=== PATIENT | female | born 1985 | race Caucasian/White ===

== ENCOUNTER 2020-05-05 15:07 | Emergency (ER) | payer OTHER, SELFPAY ==
[2020-05-05 15:13] VITALS: BP 151/94; PULSE 92; RESP 16; TEMP 36.6; O2SAT 100
--- NOTE | 2020-05-05 15:30 | DI.US_ITS ---
EXAM: US UPPER EXTREMITY VENOUS LT CLINICAL HISTORY: BILAT PAIN AND SWELLING. TECHNIQUE: Ultrasound examination of the left upper extremity venous system(s) is performed using gr ayscale, color-flow, and spectral Doppler analysis. COMPARISON: No exams were available for comparison FINDINGS: The left internal jugular, axillary, subclavian, cephalic, basilic and brachial veins are patent with out evidence of thrombosis. Soft tissues are unremarkable. IMPRESSION: No DVT. DATA REPOSITORY:
--- NOTE | 2020-05-05 15:30 | DI.US_ITS ---
EXAM: US UPPER EXTREMITY VENOUS RT CLINICAL HISTORY: BILATERAL PAIN AND SWELLING. TECHNIQUE: Ultrasound examination of the right upper extremity venous system(s) is performed using g rayscale, color-flow, and spectral Doppler analysis. COMPARISON: No exams were available for comparison FINDINGS: The right internal jugular, axillary, subclavian, cephalic, basilic and brachial veins are patent wit hout evidence of thrombosis. Soft tissues are unremarkable. IMPRESSION: No DVT. DATA REPOSITORY:
--- NOTE | 2020-05-05 15:40 | ED.GENADUL_ITS ---
Discharge Plan Disposition Patient Disposition: HOME Condition: Stable Discharge Details Clinical Impression: Myalgia [facility]: Selwyn Carver Home Meds and New Rx's Prescriptions: New ketorolac 10 mg tablet 10 mg PO TID PRN (Reason: pain) 5 Days Qty: 15 RF: 0 Continued Vyvanse 60 mg Capsule 60 mg PO DAILY RF: 0 duloxetine 60 mg Capsule, Delayed Rel Sprinkle 60 mg PO DAILY RF: 0 Discharge Instructions Instructions: Musculoskeletal Pain (ED) Additional Instructions: Home to rest today. Your work-up included a laboratory panel of D-dimer, CBC, comprehensive, CK, CRP. [place] amounts of fluids to maintain hydration. May use the provided ketorolac 3 times daily as needed for pain. Do not use with additional Motrin, ibuprofen, Advil. May use Tylenol 650 mg every 6 hours as needed. Return if you have a rash, difficulty breathing, progressive swelling, or any other acute concerns. 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 She then developed bilateral upper extremity swelling and discomfort on Tuesday morning that has been constant and without modifying factors. No chest pain or shortness of breath, no change to urine. Her sister is a history of lupus anticoagulant disorder. The patient's does not have known history of clotting disorder. She is slightly hypertensive and mildly anxious on exam. Must exclude rhabdomyolysis, underlying DVT. Patient IV access established, labs obtained, referred for bilateral upper extremity ultrasound. Ultrasound of the right and left upper extremity does not reveal evidence of DVT. Labs are reassuring but would not be discretely elevated CK of 200. Discussed with patient she may have myalgias. Discussed with her indications to seek return evaluation. Will place her on Toradol for its anti-inflammatory effects and will have her hydrate. She is stable for discharge to home and follow-up with her primary care physician. Lab Data Lab results reviewed: Yes I reviewed the patient's lab results. Labs: Laboratory Results - last 24 hr 05/05/20 05/05/20 05/05/20 16:00 16:00 17:06 WBC 8.38 RBC 4.98 Hgb 15.2 Hct 43.7 MCV 87.8 MCH 30.5 MCHC 34.8 RDW 11.3 L Plt Count 341 MPV 9.7 Immature Gran % 0.2 Neutrophils % 53.6 Lymphocytes % 38.3 Monocytes % 5.4 Eosinophils % 1.9 Basophils % 0.6 Nucleated RBC % 0 Absolute Neutrophils 4.49 Absolute Lymphocytes 3.21 Absolute Monocytes 0.45 Absolute Eosinophils 0.16 Absolute Basophils 0.05 PT 10.4 INR 1.0 APTT 23.6 D-Dimer 291 Sodium Potassium Chloride Carbon Dioxide Anion Gap BUN Creatinine Estimated GFR/1.73 m2 Glucose Calcium Magnesium 2.1 Total Bilirubin AST ALT Alkaline Phosphatase Creatine Kinase 200 H C-Reactive Protein Total Protein Albumin 05/05/20 05/05/20 17:06 17:09 WBC RBC Hgb Hct MCV MCH MCHC RDW Plt Count MPV Immature Gran % Neutrophils % Lymphocytes % Monocytes % Eosinophils % Basophils % Nucleated RBC % Absolute Neutrophils Absolute Lymphocytes Absolute Monocytes Absolute Eosinophils Absolute Basophils PT INR APTT D-Dimer Sodium 143 Potassium 3.5 Chloride 106 Carbon Dioxide 27.4 Anion Gap 9.6 BUN 9 Creatinine 0.8 Estimated GFR/1.73 m2 >= 60.00 Glucose 96 Calcium 9.0 Magnesium Total Bilirubin 0.4 AST 26 ALT 29 Alkaline Phosphatase 76 Creatine Kinase C-Reactive Protein 0.11 Total Protein 8.0 Albumin 3.9 HPI General Mode of arrival: ambulatory . Date/Time Provider Initiated Documentation: 05/05/20 15:09 . Limitations to Documentation: no limitations . Information obtained by: patient . History of Present Illness 34 year old F presents to the emergency department with the chief complaint of Bilateral upper extremity, described as moderate, Quality is described as dull and constant, and is localized to the left, right and upper extremity. Patient started experiencing this day(s) and it has been constant. No relieving factors imp rove symptom(s), No exacerbating factors reported . Patient notes weakness; denies chest pain, shortness of breath and syncope. Patient did receive the following treatments prior to arrival, none and other (NSAID on the weekend) Related Data Home Medications Medication Instructions Recorded Confirmed Vyvanse 60 mg PO DAILY 05/05/20 05/05/20 duloxetine 60 mg PO DAILY 05/05/20 05/05/20 ketorolac 10 mg PO TID PRN 5 Days #15 tab 05/05/20 Previous Rx's Medication Instructions Recorded ketorolac 10 mg PO TID PRN 5 Days #15 tab 05/05/20 Allergies Allergy/AdvReac Type Severity Reaction Status Date / Time No Known Allergies Allergy Unverified 05/05/20 15:15 General Stated Complaint: Vascular KILO: 3 Review of Systems Narrative: No chest pain or shortness of breath. Sister has a history of blood clots. Worked to set up a power lifting competition prior to onset. Has otherwise been well. 8 systems reviewed and otherwise negative. [facility] Social History Smoking risk assessment performed?: No Exam Narrative Exam Narrative: GEN: awake, alert, oriented 3. Pleasant, well groomed, interactive. HEAD: Normocephalic, atraumatic ENT: Mucous membranes moist, oropharynx unremarkable, External ear exam unremarkable EYES: PERRL, EOMI NECK: Full ROM, no RATNA, no menigismus CHEST/RESP: Nontender, clear to auscultation bilateral, no wheeze/rhonchi/rales CARDIOVASCULAR: RRR, no murmur, rub amanda. 2+ Rad pulse bilateral ABDOMEN: Soft, nontender, no mass. +Bowel sounds EXT: Full ROM, patient able to demonstrate normal motor function of the radial, ulnar, median nerves of bilateral upper extremities. Her strength is 5 out of 5. 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 Her sensation is intact throughout. 2+ radial pulse bilaterally. Neuro: Grossly normal neurologic exam, conversant, interactive. Psych: Speech fluent, thoughts congruent, affect normal Course Vital Signs Vital signs: Vital Signs Temperature 36.6 C 05/05/20 15:13 Pulse 92 H 05/05/20 15:13 Respiratory Rate 16 05/05/20 15:13 Blood Pressure 151/94 H 05/05/20 15:13 Pulse Oximetry 100 05/05/20 15:13 Temperature 36.6 C 05/05/20 15:13 Temperature Source Temporal Artery Scan 05/05/20 15:13 Pulse 92 H 05/05/20 15:13 Respiratory Rate 16 05/05/20 15:13 Blood Pressure 151/94 H 05/05/20 15:13 Pulse Oximetry 100 05/05/20 15:13 Oxygen Delivery Method Room Air 05/05/20 15:13 Oxygen Flow Rate 0 05/05/20 15:13 Pain Level 8 05/05/20 15:13
[2020-05-05 16:13] VITALS: RESP 18
[2020-05-05 16:22] LABS: Abs Immature Grans 0.02 10^3/uL (0.0-0.06); Absolute Basophil Count 0.05 10^3/uL (0.0-0.2); Absolute Eosinophil Count 0.16 10^3/uL (0.0-0.7); Absolute Lymphocyte Count 3.21 10^3/uL (1.2-3.4); Absolute Monocyte Count 0.45 10^3/uL (0.1-0.8); Absolute Neutrophil Count 4.49 10^3/uL (1.2-6.7); Basophils % 0.6; Eosinophils % 1.9; HCT 43.7 % (36.0-46.0); HGB 15.2 g/dL (11.2-15.7); Immature Grans % 0.2; Lymphocytes % 38.3; MCH 30.5 pg (27.0-33.0); MCHC 34.8 % (32.0-36.0); MCV 87.8 fL (80-95); MPV 9.7 fL (8.0-11.0); Monocytes % 5.4; Neutrophils % 53.6; Nucleated RBC 0 %; Platelet Count 341 10^3/uL (130-400); RBC 4.98 10^6/uL (3.93-5.22); RDW 11.3 % (11.7-14.6); RDW-SD 36.3 fL; WBC 8.38 10^3/uL (4.4-10.8)
[2020-05-05 16:32] LABS: PTT Activated 23.6 sec (21.0-27.5); Prothrombin Time 10.4 sec (9.3-11.0)
[2020-05-05 16:56] LABS: D-Dimer 291 ng/mlFEU (<500)
--- NOTE | 2020-05-05 17:11 | DI.VRAD_ITS ---
PROCEDURE INFORMATION: Exam: US Duplex Right Upper Extremity Veins, Limited Exam date and time: 05/05/2020 4:32 PM Age: 34 years old Clinical indication: Pain; Other: Arm TECHNIQUE: Imaging protocol: Real-time Duplex ultrasound of the Right Upper Extremity with 2-D vazquez scale, color Doppler flow and spectral waveform analysis with image documentation. Limited exam focused on the right upper extremity veins. COMPARISON: No relevant prior studies available. FINDINGS: Right deep veins: Unremarkable. Axillary and brachial veins are patent throughout without thrombus. Normal Doppler waveforms. Normal compressibility and/or augmentation response. Visualized internal jugular and subclavian veins are patent. Right superficial veins: Unremarkable. Visualized cephalic and basilic veins are patent without thrombus. Soft tissues: Unremarkable. IMPRESSION: No evidence of deep vein thrombosis. Dictated and Authenticated by: Shilo Mora MD. Ordering:ARLEN Samano MD
--- NOTE | 2020-05-05 17:17 | DI.VRAD_ITS ---
PROCEDURE INFORMATION: Exam: US Duplex Upper Extremity Veins Exam date and time: 05/05/2020 3:35 PM Age: 34 years old Clinical indication: Pain; Other: Arm TECHNIQUE: Imaging protocol: Real-time Duplex ultrasound of the Upper Extremities with 2-D vazquez scale, color Doppler flow and spectral waveform analysis with image documentation. Complete exam focused on the bilateral upper extremity veins. COMPARISON: US UPPER EXTREMITY VENOUS RT 05/05/2020 4:08 PM FINDINGS: Right deep veins: Unremarkable. Axillary and brachial veins are patent throughout without thrombus. Normal Doppler waveforms. Normal compressibility and/or augmentation response. Visualized internal jugular and subclavian veins are patent. Right superficial veins: Unremarkable. Visualized cephalic and basilic veins are patent without thrombus. Left deep veins: Unremarkable. Axillary and brachial veins are patent throughout without thrombus. Normal Doppler waveforms. Normal compressibility and/or augmentation response. Visualized internal jugular and subclavian veins are patent. Left superficial veins: Unremarkable. Visualized cephalic and basilic veins are patent without thrombus. Soft tissues: Unremarkable. IMPRESSION: No evidence of deep vein thrombosis. Dictated and Authenticated by: Shilo Mora MD. Ordering:ARLEN Samano MD
[2020-05-05 17:27] LABS: Creatine Kinase 200 U/L (26-192); Magnesium 2.1 mg/dL (1.8-2.4)
[2020-05-05 17:46] LABS: ALT 29 U/L (14-59); AST 26 U/L (15-37); Albumin 3.9 g/dL (3.4-5.0); Alkaline Phosphatase 76 U/L (46-116); Anion Gap 9.6 mmol/L (3-11); BUN 9 mg/dL (7-18); Bilirubin, Total 0.4 mg/dL (0.2-1.0); CO2 27.4 mmol/L (21.0-32.0); CREATININE 0.8 mg/dL (0.55-1.02); Chloride 106 mmol/L (98-107); Glucose 96 mg/dL (74-106); Potassium 3.5 mmol/L (3.5-5.1); Sodium 143 mmol/L (136-145)
[2020-05-05 17:55] LABS: C-Reactive Protein 0.11 mg/dL (0.0-0.3)
[2020-05-05] MEDS: Ketorolac 10 MG TAB PO (18:20)
== END 2020-05-05 18:18 | disposition home or self-care (01) ==
PROVIDERS: Emergency Provider Emergency Medicine
DX: M79.18 Myalgia, other site (principal); R60.0 Localized edema
CPT/HCPCS: 36415; 80053; 82550; 99284; 83735; 85025; 85379; 85610; 85730; 86140; 93971

== ENCOUNTER 2021-02-22 02:07 | Emergency (ER) | payer OTHER, SELFPAY ==
[2021-02-22 02:47] VITALS: BP 140/79; PULSE 108; RESP 18; TEMP 36.9; O2SAT 98
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
== END 2021-02-22 04:48 | disposition home or self-care (01) ==
PROVIDERS: Emergency Provider Emergency Medicine
DX: F43.10 Post-traumatic stress disorder, unspecified (principal); R46.89 Other symptoms and signs involving appearance and behavior
CPT/HCPCS: 99285; 99283

== ENCOUNTER 2021-11-30 20:23 | Emergency (ER) | payer OTHER, SELFPAY ==
[2021-11-30 20:42] VITALS: BP 138/92; PULSE 108; RESP 24; TEMP 36.7; O2SAT 99
--- NOTE | 2021-11-30 20:45 | DI.CT_ITS ---
Exam(s) CT UPPER EXTREMITY RT WO EXAM: CT UPPER EXTREMITY RT WO CLINICAL HISTORY: Post carpal tunnel surgery, Injury, TECHNIQUE: Imaging Protocol: Axial computed tomography images with coronal and sagittal reformatted images were created and reviewed. CONTRAST MATERIAL: Intravenous: Omnipaque 350 Contrast volume:structured data in ml Contrast route:I V - Oral: yes / no COMPARISON: No exams were available for comparison FINDINGS: In the region of the elbow there are surgical clips seen along the ulnar aspect, probably related to surgery at this level, possibly related to the ulnar nerve. There is overlying skin thickening and s tranding in the subcutaneous fat at this level and extending distally along the dorso medial aspect o f the forearm. There is also truncation of the medial epicondyle of the distal humerus, probably pos tsurgical. More distally at the level of the wrist there is streaking in the region of the carpal tunnel which i s probably related to recent release surgery at this level. There is stranding and fluid in the oper ative bed region no drainable fluid collection evident. No evidence of osteomyelitis in the bones th e wrist. IMPRESSION: Postoperative findings at the level the carpal tunnel and ulnar side of the elbow, as described above . Correlation with recent surgical history recommended. RADIATION DOSE DELIVERED: 195.15mGy.cm Total DLP DATA REPOSITORY: All CT scans at this facility are submitted to the National Radiology Data Registry (NRDR) Dose Index Registry (DIR) with the [employer] ([employer]). RADIATION OPTIMIZATION: All CT scans at this facility use at least one of these dose optimization te chniques: automated exposure control; mA and/or kV adjustment per patient size (includes targeted exa ms where dose is matched to clinical indication); or iterative reconstruction.
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
[2021-11-30] MEDS: oxyCODONE 5 mg/Acetaminophen 325 mg TAB 1 TAB PO ×2 (21:01→23:19)
[2021-11-30] MEDS: Ondansetron O.D.T. 4 MG TABEF PO (21:02)
--- NOTE | 2021-11-30 23:01 | DI.VRAD_ITS ---
PROCEDURE INFORMATION: Exam: CT Right Upper Extremity Without Contrast Exam date and time: 11/30/2021 9:15 PM Age: 36 years old Clinical indication: Pain; Lower or forearm and elbow and wrist; Right; Prior surgery; Surgery type: Carpal tunnel syndrome; Patient HX: [facility] TECHNIQUE: Imaging protocol: Computed tomography of the Right upper extremity without contrast. COMPARISON: US UPPER EXTREMITY VENOUS RT 05/05/2020 4:08 PM FINDINGS: Bones/joints: Postoperative changes of a carpal tunnel release. Stranding and mild fluid is seen within the adjacent soft tissues. The fluid tracks along the flexor tendons. No acute fracture or osseous erosions to suggest osteomyelitis. Truncation is seen within the medial epicondyle of the distal humerus with several tiny bony fragments. The remaining bones are normal in appearance. Soft tissues: Surgical clips are seen along the ulnar aspect of the elbow, likely representing an ulnar nerve transposition. Multiple surgical clips are seen within the operative bed. Additionally, nodular thickening is seen within the overlying skin, with bandlike subcutaneous stranding and fluid. Mild subcutaneous edema is seen along the dorsal aspect of the forearm. Other findings: No discrete well-circumscribed drainable fluid collection or mature abscess. IMPRESSION: 1. Postoperative changes of a carpal tunnel release, with mild skin thickening and soft tissue stranding and fluid within the operative bed and extending along the flexor tendons. Overall, this suggests early postoperative changes. However, developing infection could also have this appearance, in the correct clinical context. 2. Postoperative changes of a probable ulnar nerve transposition surgery, with ill-defined fluid, surgical clips, and nodular skin thickening seen along the ulnar aspect of the elbow. The soft tissue stranding in fluid may represent early postoperative changes. However, developing infection could give this appearance, in the correct clinical context. 3. Truncation of the medial epicondyle of the distal humerus with a couple adjacent tiny osseous fragments. This may represent sequela of an osseous resection/osteotomy. Correlation with surgical history is recommended. If the patient has not undergone a medial epicondyle resection/osteotomy, then osteomyelitis would give this appearance. Dictated and Authenticated by: Samia Koo MD. Ordering:MARK Blankenship MD
[2021-11-30 23:27] VITALS: TEMP 36.7; O2SAT 99
== END 2021-11-30 23:25 | disposition home or self-care (01) ==
PROVIDERS: Emergency Provider Registered Nurse Emergency
DX: G89.11 Acute pain due to trauma (principal); M79.601 Pain in right arm; X50.1XXA Overexertion from prolonged static or awkward postures, initial encounter
CPT/HCPCS: 99284; 73200; 99283